=== PATIENT | female | born 1945 | race Caucasian/White ===

== ENCOUNTER → 2019-09-11 | Outpatient (CLI) | payer OTHER ==
[~2019-09-11] MED LIST: ALLOPURINOL 10100 M1 PO; AMARYL2 M1 PO; APAP650 PO; ASA81BEC PO; ASPIRIN325 PO; CLARITIN-D 12 H1 TA1 OR; CLARITIN10 MG PO; CLONAZEPAM 1 MG1 M1 PO; COZAAR 25 MG TA25 M1 PO; EFFIENT10 MG PO; GLUCOPHAGE XR750 MG PO; HYDROCODONE-AP1 EAC6 PO; LEVO-T50 MCG PO; LEXAPRO20 MG PO; LIPITOR 20 MG T20 M1 PO; LIVALO4 MG PO; MAXZIDE 75-501 EACH OR; MAXZIDE-25 MG1 EACH PO; MINOCYCLINE HC100 M2; MOBIC15 MG PO; MUCINEX D ER 61 EACH PO; MUCINEX D TABL1 EACH OR; NEURONTIN100 MG PO; OCUVITE PRESER1 EACH; OCUVITE TABLET1 EAC1 PO; PERCOCET 5-3251 EACH PO; PREVACID15 MG PO; PRILOSEC 20 MG20 MG; PRILOSEC20 MG PO; TRIAMTERENE-HC1 EAC3 PO; VALIUM5 MG; VITAMIN D1000 UNI1 PO; VITAMIN D2000 UNI1 PO
== END ==
LOC: SJCVCIMAG 07:48
PROVIDERS: ATTEND Internal Medicine Cardiovascular Disease
DX: I25.10 Atherosclerotic heart disease of native coronary artery without angina pectoris (principal); R00.0 Tachycardia, unspecified

== ENCOUNTER → 2019-09-13 | Outpatient (CLI) | payer OTHER ==
[~2019-09-13] VITALS: Ht 170.2 cm; Wt 80.7 kg
[2019-09-13 07:15] VITALS: BP 116/65
[2019-09-13 07:44] LABS: HEMATOCRIT 40.2 % (37.0-47.0); HEMOGLOBIN 13.4 gm/dL (12.0-15.0); MCH 30.7 pg (26.0-34.0); MCHC 33.2 g/dL (28.0-37.0); MCV 92.3 fL (80.0-100.0); RBC 4.35 mil/uL (4.20-5.00); RDW 14.4 % (10.5-14.5); WBC 6.3 thou/uL (4.0-11.0)
[2019-09-13 07:58] LABS: CALCIUM 9.2 mg/dL (8.5-10.1); CREATININE 1.2 mg/dL (0.6-1.0); POTASSIUM 4.5 mmol/L (3.5-5.1)
--- NOTE | 2019-09-13 09:07 | EKG ---
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: [facility] : 1945 Requested By: Israel Riddle Order Number: [id number] MD: Robbie Abrams Measurements Intervals [place] Rate: 69 P: -16 LA: 161 QRS: -9 QRSD: 102 T: 54 QT: 417 QTc: 447 Interpretive Statements Sinus rhythm No significant abnormality Compared to ECG 01/07/2015 11:58:55 No significant change was found Electronically Signed On 09-13-2019 9:07:24 CDT by Robbie Abrams [email or web address] <ELECTRONICALLY SIGNED> By: Robbie Abrams MD, [facility] 09/13/19 0907 Robbie Abrams MD, [facility] /EPI
--- NOTE | 2019-09-16 09:01 | CATHLAB ---
[facility] [address] [place] [address] INVASIVE PROCEDURE REPORT Name: MARIA EANJALIBENJAMINMARIO Room #: REG [facility]#: [id number] Admission: 09/13/19 Attend Phys: Israel Riddle MD, Discharge: Date of : 47 Report #: [id number] THIS REPORT FOR: cc: Fuentes Mullins MD, Stuart MD Mancuso, Gerald M. MD [facility] ~ APPROVED REPORT Study performed: 09/13/2019 09:36:04 Patient Details Patient Status: Out-Patient Room #: The patient is a 74 year-old female Event Personnel Israel Riddle Zone Maintenance Technician, Kalia Veloz RN RN, Jennifer Arora, Preet Phipps RTClarita Monitor Procedures Performed Art Access - R femoral artery* Left Heart Cath w/or w/o Coronaries [id number] [facility] Aortogram Abdominal Peripheral Angio [id number] [id number] Initial Mod Sed Same Phys/QHP [facility] [id number] Mod Sed Same Phys/QHP Ea [id number] Hemostasis w/ Mynx Indication Chest pain Procedure Narrative The Right Groin^ was infiltrated with 1% Lidocaine subcutaneous anesthesia. A PINNACLE 6FR Sheath #[id number] sheath was inserted into the RFA^. Coronary angiography was performed using coronary diagnostic catheters. The right coronary system was accessed and visualized with a JR4 catheter. The left coronary system was accessed and visualized with a JL4 catheter. The left ventricle was accessed and visualized with a PIGTAIL catheter. Left ventriculogram was performed in 30 degree projection. An aortogram of the abdominal aorta was performed. Pre-demployment femoral angiogram was performed . Closure device was deployed with a 6 Fr MYNX ARCH CUSHION PRESS OPERATOR. The patient tolerated the procedure well and there were no complications associated with the procedure. There was no hematoma. Intraoperative Conscious Sedation Sedation start time: 1001 Case end Time: 1030 [facility] [place] [address] INVASIVE PROCEDURE REPORT Name: MARIO BERG [id number] Admission: 09/13/19 Attend Phys: Israel PriceRoseline XavierJanessa, Discharge: Date of : 47 Report #: [id number] Fentanyl 100 mcg Versed 2 mg Fluoro Time: 1.20 minutes Dose: DAP 4855.00 cGycm2 569 mGy Contrast Type and Amount: Visipaque 95 ml Hemodynamics The aortic pressure is 128/62 mmHg with a mean of 92 mmHg. The left ventricular pressure is 128/5 mmHg with a mean of mmHg. The left ventricular end diastolic pressure is 24 mmHg. Conclusion 1. Normal left jugular size and systolic function EF 55 to 60% #2 abdominal aortogram reveals no evidence of aneurysm brisk flow is noted. Single bilateral renal arteries appear to fill briskly. #3 left main free of disease giving rise to LAD and circumflex #4 LAD is mild proximal disease with an eccentric 40 to 50% lesion just after a diagonal takeoff. Patent around the apex. 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 Recommendations and plan: Continue aggressive risk factor modification. No indication for coronary intervention. <ELECTRONICALLY SIGNED> By: Israel Riddle MD, FACC 09/16/19900 0 0 Israel Riddle MD, FACC /INF
== END | disposition home or self-care (01) ==
LOC: CATH 06:27
PROVIDERS: ATTEND Internal Medicine Cardiovascular Disease
DX: R07.9 Chest pain, unspecified (principal); I25.10 Atherosclerotic heart disease of native coronary artery without angina pectoris; I10 Essential (primary) hypertension; E11.9 Type 2 diabetes mellitus without complications; E78.5 Hyperlipidemia, unspecified; K21.9 Gastro-esophageal reflux disease without esophagitis; Z98.890 Other specified postprocedural states; Z79.899 Other long term (current) drug therapy; Z90.710 Acquired absence of both cervix and uterus; Z98.41 Cataract extraction status, right eye; Z90.49 Acquired absence of other specified parts of digestive tract; Z98.42 Cataract extraction status, left eye; Z96.652 Presence of left artificial knee joint; Z79.82 Long term (current) use of aspirin; Z88.8 Allergy status to other drugs, medicaments and biological substances

== ENCOUNTER → 2020-09-01 | Outpatient (CLI) | payer OTHER | LOC: SJCVC 10:04 | PROVIDERS: ATTEND Internal Medicine Cardiovascular Disease | DX: I25.10 Atherosclerotic heart disease of native coronary artery without angina pectoris (principal); I10 Essential (primary) hypertension; E78.00 Pure hypercholesterolemia, unspecified; E11.9 Type 2 diabetes mellitus without complications; M10.9 Gout, unspecified; Z79.899 Other long term (current) drug therapy; Z88.8 Allergy status to other drugs, medicaments and biological substances ==

== ENCOUNTER → 2021-03-18 | Outpatient (CLI) | payer OTHER | LOC: SJCVC 13:59 | PROVIDERS: ATTEND Internal Medicine Cardiovascular Disease | DX: I25.10 Atherosclerotic heart disease of native coronary artery without angina pectoris (principal); I10 Essential (primary) hypertension; E78.00 Pure hypercholesterolemia, unspecified; E11.9 Type 2 diabetes mellitus without complications ==